=== PATIENT | female | born 1995 | race African-American/Black ===

== ENCOUNTER 2025-01-06 01:16 | Emergency (ER) | payer MEDICAID ==
[~2025-01-06] VITALS: Ht 167.6 cm; Wt 59.1 kg
[2025-01-06 01:28] VITALS: TEMP 98.1
[2025-01-06 01:38] VITALS: BP 121/84; PULSE 106; RESP 14; O2SAT 100
[2025-01-06 02:21] LABS: PLATELET COUNT (AUTO) 331 K/uL (150-450); RED BLOOD CELL COUNT(AUTO) 4.14 MIL/uL (4.00-5.20); RED CELL DISTRIBUTION WIDTH 12.9 % (11.5-14.5); WHITE BLOOD COUNT (AUTO) 13.3 K/uL (4.5-11.0)
[2025-01-06] MEDS: SODIUM CHLORIDE 0.9% 1,000 ML IV ONE (02:21)
[2025-01-06] MEDS: ONDANSETRON HCL 4 MG/2 ML VIAL IVP ONE (02:23)
[2025-01-06 02:32] LABS: CALCIUM, TOTAL 9.3 mg/dL (8.8-10.5); CREATININE 1.19 mg/dL (0.60-1.30); GLOMERULAR FILTR. RATE CALC > 60 mL/min (>60); GLUCOSE,RANDOM 94 mg/dL (70-110); SODIUM SERUM 138 mmol/L (136-145); UREA NITROGEN, BLOOD 8 mg/dL (7-18)
[2025-01-06 02:43] LABS: ASPARTATE AMINOTRANSFERASE 25 U/L (15-37); HCG,QUANTITATIVE < 1 mIU/mL (0-6); TOTAL PROTEIN, SERUM 7.7 g/dL (6.4-8.2)
[2025-01-06 02:45] LABS: APPEARANCE,URINE CLEAR (CLEAR); GLUCOSE, URINE (UA) NEGATIVE (NEGATIVE); LEUKOCYTE ESTERASE ,URINE NEGATIVE (NEGATIVE); NITRATE,URINE NEGATIVE (NEGATIVE); OCCULT BLOOD,URINE NEGATIVE (NEGATIVE); SPECIFIC GRAVITIY, URINE 1.021 (1.003-1.030)
== END 2025-01-06 04:35 | disposition home or self-care (01) ==
LOC: EMS 01:21
DX: K59.00 Constipation, unspecified (principal); R10.32 Left lower quadrant pain; N89.8 Other specified noninflammatory disorders of vagina
CPT/HCPCS: 99285; 74176; 96374; 96361; 80048; 80076; 81003; 83690; 84702; 85025; 36415; J2405; J7030